=== PATIENT | female | born 1970 | race Caucasian/White ===

== ENCOUNTER → 2017-02-10 | Outpatient (CLI) | payer OTHER ==
[~2017-02-10] MED LIST: ANTI-INFLAMMATORY PO; CALCTAB7 PO; CHOL100027 PO; CITA10TA8 PO; CRAN1TAB PO; DICL-201 PO; LINA1CAP2 PO; MULT-1044 PO; PROP40TA5 PO
[2017-02-10 14:36] LABS: URINE APPEARANCE CLEAR (CLEAR); URINE BILIRUBIN NEG (NEG); URINE COLOR YELLOW; URINE NITRITE NEG (NEG); URINE SPECIFIC GRAVITY 1.009 (1.000-1.030); UROBILINOGEN NEG (NEG)
[2017-02-10 14:38] LABS: MANUAL MICROSCOPIC REQUIRED? NO; REVIEW REQ? NO
== END | disposition home or self-care (01) ==
LOC: C.LABSPEC 13:41
PROVIDERS: ATTEND Obstetrics & Gynecology
DX: R35.0 Frequency of micturition (principal)

== ENCOUNTER → 2017-04-15 | Outpatient (CLI) | payer OTHER | END | disposition home or self-care (01) | LOC: C.LAB1850 16:51 | PROVIDERS: ATTEND Obstetrics & Gynecology | DX: N95.1 Menopausal and female climacteric states (principal) ==

== ENCOUNTER 2017-07-23 18:39 | Emergency (ER) | payer OTHER ==
[~2017-07-23] VITALS: Ht 160 cm; Wt 82.8 kg
[2017-07-23 18:42] VITALS: TEMP 36.8; Ht 160 cm; Wt 82.8 kg
--- NOTE | 2017-07-23 19:01 | EMERGENCY ROOM VISIT NOTE ---
History Report prepared by Charisma: Stefani Carpenter Under the Supervision of: Dr. Jt Ragsdale M.D. First contact with patient: 18:46 Chief Complaint: GI ASSESSMENT Stated Complaint: BLOATING, ABDOMEN IS HARD, HEARTBURN Nursing Triage Summary: pt reports looks like and she is not . has abd bloated. feels nauseated no vomiting. no hx bowel obstruction. History of Present Illness The patient is a 46 year old female who presents to the Emergency Room with complaints of worsening abdominal bloating beginning a couple months ago. The patient reports her last bowel movement was this morning. She has been taking Linzess to help her go to the bathroom but states that her bloating began after she started using it. The patient states she feels like she is but she is not .The patient notes abdominal bloating, and nausea but denies any vomiting , or urinary symptoms. She notes that her pants have been fitting tighter. The patient has a history of a cholecystectomy. Source of History: patient Onset: a couple moths ago Position: abdomen Quality: other (bloating) Timing: worsening Associated Symptoms: + nausea, No vomiting, No urinary symptoms Review of Systems See HPI for pertinent positives & negatives. A total of 10 systems reviewed and were otherwise negative. Past Medical & Surgical Surgical Problems: (1) History of cholecystectomy Family History No pertinent family history stated. Social History Smoking Status: Never Smoker Marital Status: in relationship Current/Historical Medications Scheduled Calcium Carbonate-Vitamin D W/ (Caltrate 600 Plus), 1 TAB PO DAILY Cholecalciferol (Vitamin D 1000 Unit), 1,000 INTER.UNIT PO DAILY Citalopram Hydrobromide (Celexa), 10 MG PO DAILY Cranberry (Vaccinium Macrocarp (Cranberry), 1 TAB PO BID Diclofenac (Voltaren), 75 MG PO BID Linaclotide (Linzess), 1 TAB PO DAILY Multiple Vitamins W/ Minerals (Alive Once Daily Womens U), 1 TAB PO DAILY Propranolol Hcl (Propranolol Hcl), 1 TAB PO BID Allergies Coded Allergies: CI Pigment Blue 63 (Verified Allergy, Severe, ANAPHYLAXIS, 07/23/17) Carbamazepine (Verified Allergy, Severe, RASH, 07/23/17) Dexlansoprazole (Verified Allergy, Severe, ANAPHYLAXIS, 07/23/17) Physical Exam Vital Signs Date Time Temp Pulse Resp B/P (MAP) Pulse Ox O2 Delivery O2 Flow Rate FiO2 07/23/17 20:12 70 16 114/74 100 Room Air 07/23/17 18:42 36.8 91 18 130/78 96 Room Air Physical Exam GENERAL: Patient is in no acute distress. HEENT: No acute trauma, normocephalic atraumatic, mucous membranes moist, no nasal congestion, no scleral icterus. NECK: No stridor, no adenopathy, no meningismus, trachea is midline. LUNGS: Clear to auscultation bilaterally, no wheeze, no rhonchi, breath sounds equal. HEART: Without murmurs gallops or rubs, regular rate and rhythm. ABDOMEN: Slightly distended, soft, nontender, bowel sounds positive, no hernias , no peritonitis. EXTREMITIES: No cyanosis or edema, full range of motion of all the joints without pain or difficulty, no signs for acute trauma. NEUROLOGIC: Oriented x 3, no acute motor or sensory deficits, no focal weakness. SKIN: No rash, no jaundice, no diaphoresis. Medical Decision & Procedures ER Provider Diagnostic Interpretation: Radiology results as stated below per my review and radiologist interpretation: ABD/PELVIS IV CONTRAST ONLY FINDINGS: Lung bases are clear. Mild fatty infiltration of liver. Prior cholecystectomy. Spleen is uniform. Pancreas is unremarkable. Kidneys enhance uniformly. No evidence for hydronephrosis. Bowel pattern is considered nonobstructive throughout. Moderate fecal material is present throughout. Comment aorta is normal in course and caliber. No evidence for abscess or obstructive change. Bladder is midline. Inguinal regions are unremarkable. There is an old healed fracture right pubic ring. IMPRESSION: No acute process of the abdomen or pelvis. Mild fatty infiltration of liver. Prior cholecystectomy. The above report was generated using voice recognition software. It may contain grammatical, syntax or spelling errors. Electronically signed by: Damion Noyola M.D. ABDOMEN 2VIEW W/PA CHEST RTN FINDINGS: The soft tissues, psoas shadows, renal outlines and intestinal gas pattern appear normal. There is no evidence for bowel obstruction. There is no evidence for free intraperitoneal air. No abnormal abdominal calcifications are seen. A frontal view of the chest was performed and is unremarkable. IMPRESSION: Normal study. The above report was generated using voice recognition software. It may contain grammatical, syntax or spelling errors. Electronically signed by: Damion Noyola M.D. Laboratory Results 10/27/17 19:05 Red Blood Count 4.70, Mean Corpuscular Volume 89.1, Mean Corpuscular Hemoglobin 29.4, Mean Corpuscular Hemoglobin Concent 32.9, Mean Platelet Volume 9.3, Neutrophils (%) (Auto) 47.2, Lymphocytes (%) (Auto) 39.3, Monocytes (%) (Auto) 9.0, Eosinophils (%) (Auto) 4.1, Basophils (%) (Auto) 0.2, Neutrophils # (Auto) 3.86, Lymphocytes # (Auto) 3.22, Monocytes # (Auto) 0.74, Eosinophils # (Auto) 0.34, Basophils # (Auto) 0.02 07/23/17 19:05 Test 07/23/17 19:05 White Blood Count 8.20 K/uL (4.8-10.8) Red Blood Count 4.70 M/uL (4.2-5.4) Hemoglobin 13.8 g/dL (12.0-16.0) Hematocrit 41.9 % (37-47) Mean Corpuscular Volume 89.1 fL (80-100) Mean Corpuscular Hemoglobin 29.4 pg (25-34) Mean Corpuscular Hemoglobin Concent 32.9 g/dl (32-36) Platelet Count 403 K/uL (130-400) Mean Platelet Volume 9.3 fL (7.4-10.4) Neutrophils (%) (Auto) 47.2 % Lymphocytes (%) (Auto) 39.3 % Monocytes (%) (Auto) 9.0 % Eosinophils (%) (Auto) 4.1 % Basophils (%) (Auto) 0.2 % Neutrophils # (Auto) 3.86 K/uL (1.4-6.5) Lymphocytes # (Auto) 3.22 K/uL (1.2-3.4) Monocytes # (Auto) 0.74 K/uL (0.11-0.59) Eosinophils # (Auto) 0.34 K/uL (0-0.5) Basophils # (Auto) 0.02 K/uL (0-0.2) RDW Standard Deviation 42.2 fL (36.4-46.3) RDW Coefficient of Variation 13.0 % (11.5-14.5) Immature Granulocyte % (Auto) 0.2 % Immature Granulocyte # (Auto) 0.02 K/uL (0.00-0.02) Urine Color YELLOW Urine Appearance CLEAR (CLEAR) Urine pH 5.0 (4.5-7.5) Urine Specific [place] 1.012 (1.000-1.030) Urine Protein NEG (NEG) Urine Glucose (UA) NEG (NEG) Urine Ketones NEG (NEG) Urine Occult Blood NEG (NEG) Urine Nitrite NEG (NEG) Urine Bilirubin NEG (NEG) Urine Urobilinogen NEG (NEG) Urine Leukocyte Esterase NEG (NEG) Anion Gap 6.0 mmol/L (3-11) Est Creatinine Clear Calc Drug Dose 85.3 ml/min Estimated GFR () 96.6 Estimated GFR (Non- 83.3 BUN/Creatinine Ratio 8.1 (10-20) Calcium Level 8.9 mg/dl (8.5-10.1) Total Bilirubin 0.3 mg/dl (0.2-1) Aspartate Amino Transf (AST/SGOT) 36 U/L (15-37) Alanine Aminotransferase (ALT/SGPT) 80 U/L (12-78) Alkaline Phosphatase 96 U/L (45-117) Total Protein 7.3 gm/dl (6.4-8.2) Albumin 3.4 gm/dl (3.4-5.0) Globulin 3.9 gm/dl (2.5-4.0) Albumin/Globulin Ratio 0.9 (0.9-2) Lipase 115 U/L (73-393) Human Chorionic Gonadotropin, Qual NEG (NEG) Laboratory results reviewed by me. ED Course 1858: The patient was evaluated in room B9. A complete history and physical exam was performed. 1929: I reassessed the patient and she agreed to CT abdomen. 2000: Ioversol 111 ml IV. 2038: Reevaluated the patient. Discussed results and discharge instructions: She verbalized understanding and agreement. The patient is ready for discharge. Medical Decision Differential diagnoses include: gastroparesis, bowel obstruction, constipation, hernia, UTI, and urinary retention. There is no leukocytosis or concerning anemia. No significant electrolyte abnormality, kidney failure or hepatitis. There is no pancreatitis. Urinalysis does not show infection. testing is negative. Abdominal series shows no pneumonia, free air or bowel obstruction, no significant constipation. Abdominal CT does not show any acute concerning pathology, no bowel obstruction, no mass, no evidence for abscess. On exam, the patient was not febrile or toxic. There was no peritonitis. The patient presents with abdominal bloating which has been ongoing for months. I will have her stop her Linzess as this may be causing her difficulty. She will try Senokot or Miralax to keep the bowels moving. I have recommended GI follow-up. If worsening, she can return. Medication Reconcilliation Current Medication List: was personally reviewed by me Blood Pressure Screening Patient's blood pressure: Elevated blood pressure Blood pressure disposition: Elevated BP felt to be situational Impression Primary Impression: Abdominal bloating Scribe Attestation The scribe's documentation has been prepared under my direction and personally reviewed by me in its entirety. I confirm that the note above accurately reflects all work, treatment, procedures, and medical decision making performed by me. Departure Information Dispostion Home / Self-Care Referrals Kary Yoon D.O. (PCP) Forms HOME CARE DOCUMENTATION FORM, IMPORTANT VISIT INFORMATION Patient Instructions My [facility] Additional Instructions stop Linzess try Senokot 2x per day for constipation may also use Miralax set up GI appt return if worsening lab testing and imaging was all ok
[2017-07-23] MEDS ORDERED: ANTI-INFLAMMATORY PO (19:08)
[2017-07-23] MEDS ORDERED: CITA10TA8 PO (19:08)
[2017-07-23] MEDS ORDERED: PROP40TA5 PO (19:08)
[2017-07-23] MEDS ORDERED: LINA1CAP2 PO (19:08)
[2017-07-23] MEDS ORDERED: CALCTAB7 PO (19:13)
[2017-07-23] MEDS ORDERED: MULT-1044 PO (19:13)
[2017-07-23] MEDS ORDERED: CRAN1TAB PO (19:13)
[2017-07-23 19:18] LABS: BASO % 0.2 %; BASO ABS # 0.02 K/uL (0-0.2); COMPLETE YES; EOS % 4.1 %; HEMATOCRIT 41.9 % (37-47); IG% 0.2 %; LYMPH % 39.3 %; LYMPH ABS # 3.22 K/uL (1.2-3.4); MEAN CELL VOLUME 89.1 fL (80-100); MEAN CORPUSCULAR HEMOGLOBIN 29.4 pg (25-34); MEAN CORPUSCULAR HGB CONC 32.9 g/dl (32-36); MEAN PLATELET VOLUME 9.3 fL (7.4-10.4); NEUT % 47.2 %; PLATELET COUNT 403 K/uL (130-400)
[2017-07-23 19:19] LABS: URINE APPEARANCE CLEAR (CLEAR); URINE BILIRUBIN NEG (NEG); URINE COLOR YELLOW; URINE NITRITE NEG (NEG); URINE SPECIFIC GRAVITY 1.012 (1.000-1.030); UROBILINOGEN NEG (NEG); ZZUR CULT IF INDIC CLEAN CATCH NO
[2017-07-23 19:20] LABS: MANUAL MICROSCOPIC REQUIRED? NO; REVIEW REQ? NO
[2017-07-23] MEDS ORDERED: CHOL100027 PO (19:24)
[2017-07-23] MEDS ORDERED: DICL-201 PO (19:24)
--- NOTE | 2017-07-23 19:24 | DIAGNOSTIC IMAGING REPORT ---
ABDOMEN 2VIEW W/PA CHEST RTN CLINICAL HISTORY: bloated pain COMPARISON STUDY: No previous studies for comparison. FINDINGS: The soft tissues, psoas shadows, renal outlines and intestinal gas pattern appear normal. There is no evidence for bowel obstruction. There is no evidence for free intraperitoneal air. No abnormal abdominal calcifications are seen. A frontal view of the chest was performed and is unremarkable. IMPRESSION: Normal study. The above report was generated using voice recognition software. It may contain grammatical, syntax or spelling errors. Electronically signed by: Damion Noyola M.D. 07/23/2017 7:23 PM Dictated Date/Time: 07/23/2017 7:23 PM
[2017-07-23 19:38] LABS: PREG INTERNAL NEGATIVE QC NEG CLEAR BACKGROUND; PREG INTERNAL POSITIVE QC POS CONTROL LINE
[2017-07-23 19:49] LABS: BUN/CREATININE RATIO 8.1 (10-20); CALCIUM 8.9 mg/dl (8.5-10.1); CREATININE 0.84 mg/dl (0.60-1.20); POTASSIUM 3.6 mmol/L (3.5-5.1)
[2017-07-23 19:52] LABS: ALB/GLOB RATIO 0.9 (0.9-2)
[2017-07-23] MEDS ORDERED: OPTIRAY 320 IV PRN (20:00)
--- NOTE | 2017-07-23 20:14 | DIAGNOSTIC IMAGING REPORT ---
ABD/PELVIS IV CONTRAST ONLY CT DOSE: 549.43 mGy.cm HISTORY: Pain ABD PAIN, POSS mass, bloated and distended TECHNIQUE: Multiaxial CT images of the abdomen and pelvis were performed following the use of intravenous contrast. A dose lowering technique was utilized adhering to the principles of ALARA. COMPARISON STUDY: None. FINDINGS: Lung bases are clear. Mild fatty infiltration of liver. Prior cholecystectomy. Spleen is uniform. Pancreas is unremarkable. Kidneys enhance uniformly. No evidence for hydronephrosis. Bowel pattern is considered nonobstructive throughout. Moderate fecal material is present throughout. Comment aorta is normal in course and caliber. No evidence for abscess or obstructive change. Bladder is midline. Inguinal regions are unremarkable. There is an old healed fracture right pubic ring. IMPRESSION: No acute process of the abdomen or pelvis. Mild fatty infiltration of liver. Prior cholecystectomy. The above report was generated using voice recognition software. It may contain grammatical, syntax or spelling errors. Electronically signed by: Damion Noyola M.D. 07/23/2017 8:13 PM Dictated Date/Time: 07/23/2017 8:09 PM
[2017-07-23 20:45] VITALS: BP 114/74; PULSE 70; O2SAT 99
== END 2017-07-23 20:43 | disposition home or self-care (01) ==
LOC: C.EDB 18:41
DX: R14.0 Abdominal distension (gaseous) (principal); Z79.899 Other long term (current) drug therapy